=== PATIENT | female | born 1985 | race Caucasian/White ===

== ENCOUNTER 2020-12-26 21:46 | Inpatient (IN) | payer BC, OTHER ==
[2020-12-26] MEDS ORDERED: ONDANSETRON 4 MG/2 ML VIAL IVP STA (22:20)
[2020-12-26] MEDS ORDERED: SODIUM CHLORIDE 0.9% 1,000 ML IV STA (22:20)
[2020-12-26] MEDS ORDERED: KETOROLAC 15 MG/ML 1 ML VIAL IVP STA (22:20)
[2020-12-26 22:45] LABS: Basophils % (A) 0 %; Eosinophils % (A) 0 %; HCT 42.2 % (34.0-46.0); HGB 14.1 gm/dL (11.4-16.0); Lymphocytes # (A) 1.6 k/uL (1.0-4.8); Lymphocytes % (A) 10 %; MCH 29.1 pg (25.0-35.0); MCHC 33.5 g/dL (31.0-37.0); MCV 86.9 fL (80.0-100.0); Mean Platelet Volume 7.3; Monocytes # (A) 0.4 k/uL (0-1.0); Monocytes % (A) 3 %; Neutrophils # (A) 13.4 k/uL (1.3-7.7); Neutrophils % (A) 86 %; Platelet Count 307 k/uL (150-450); RBC 4.86 m/uL (3.80-5.40); RDW 13.3 % (11.5-15.5); WBC 15.5 k/uL (3.8-10.6)
[2020-12-26 22:55] LABS: ALT 15 U/L (4-34); AST 20 U/L (14-36); African American GFR (CKD) >90 (>60 ml/min/1.73 sqM); Albumin 4.4 g/dL (3.5-5.0); Alkaline Phosphatase 73 U/L (38-126); Amylase 59 U/L (30-110); Blood Urea Nitrogen 9 mg/dL (7-17); Calcium 9.7 mg/dL (8.4-10.2); Carbon Dioxide 24 mmol/L (22-30); Glucose 132 mg/dL (74-99); Lipase 46 U/L (23-300); Non-African American GFR(CKD) >90 (>60 ml/min/1.73 sqM); Sodium 137 mmol/L (137-145); Total Bilirubin 0.4 mg/dL (0.2-1.3); Total Protein 7.6 g/dL (6.3-8.2)
--- NOTE | 2020-12-26 22:57 | ED ---
Abdominal Pain HPI - General Chief Complaint: Abdominal Pain Stated Complaint: abd pain, vomiting Time Seen by Provider: 12/26/20 22:01 Source: patient, family Mode of arrival: ambulatory Limitations: no limitations - History of Present Illness Initial Comments: Patient is a 34-year-old female presenting to emergency Department with complaints of right-sided abdominal pain that started about 2 PM today. She states the pain started in her right flank and then has progressed to the right side of her abdomen and towards her right hip. She does have history of kidney stones although she feels like this is more severe pain than previous kidney stones. She does admit to some nausea and vomiting secondary severe pain. She denies any chest pain or shortness of breath, no fevers or chills. States this came on all of a sudden. Before 2 PM today she felt her normal self. She's been eating and drinking as normal. She denies being , denies any dysuria. She has history of cholecystectomy, no other abdominal surgeries. She has no further complaints. Upon arrival to the ER, her vitals are stable. - Related Data Home Medications Medication Instructions Recorded Confirmed Omeprazole 20 mg PO HS 12/26/20 12/26/20 Sertraline [Zoloft] 50 mg PO HS 12/26/20 12/26/20 Allergies Allergy/AdvReac Type Severity Reaction Status Date / Time No Known Allergies Allergy Verified 12/26/20 23:30 Review of Systems ROS Statement: Those systems with pertinent positive or pertinent negative responses have been documented in the HPI. ROS Other: All systems not noted in ROS Statement are negative. Past Medical History Past Medical History: No Reported History History of Any Multi-Drug Resistant Organisms: None Reported Past Surgical History: Cholecystectomy Past Psychological History: Depression Smoking Status: Current every day smoker Past Alcohol Use History: None Reported Past Drug Use History: None Reported General Exam - General Exam Comments Initial Comments: GENERAL: Patient is well-developed and well-nourished. Patient is nontoxic and in moderate distress, actively vomiting. HEAD: Atraumatic, normocephalic. EYES: Pupils equal round and reactive to light, extraocular movements intact, sclera anicteric, conjunctiva are normal. Eyelids were unremarkable. ENT: Nares patent, oropharynx clear without exudates. Moist mucous membranes. NECK: Normal range of motion, supple without lymphadenopathy or JVD. LUNGS: Unlabored respirations. Breath sounds clear to auscultation bilaterally and equal. No wheezes rales or rhonchi. HEART: Regular rate and rhythm without murmurs, rubs or gallops. ABDOMEN: Soft, tender to palpation in the right side of the abdomen, some mild right sided flank pain, normoactive bowel sounds. No guarding, no rebound. No masses appreciated. : Deferred MUSCULOSKELETAL: Normal extremities with adequate strength and normal range of motion, no pitting or edema. No clubbing or cyanosis. NEUROLOGICAL: Patient is alert and oriented x 3. SKIN: Warm, Dry, normal turgor, no rashes or lesions noted. Limitations: no limitations Course Vital Signs 12/26/20 21:55 Temperature 97.9 F Pulse Rate 85 Respiratory 18 Rate Blood Pressure 108/67 O2 Sat by Pulse 98 Oximetry Medical Decision Making - Medical Decision Making Patient is a 34-year-old female here with right-sided flank pain, right-sided abdominal pain since about 2 PM today. This came on all of a sudden. She does have history of stones although this feels more severe in nature. Her vitals are stable upon arrival. Labs show a white count of 15.5, lactic acid is normal. CT abdomen and pelvis shows a dilated appendix at 10 mm with minimal stranding, consistent with an acute appendicitis. Patient received some fluids, Toradol and Zofran and has been resting comfortably. I discussed these findings with her. Patient will be admitted, started on antibiotics. Patient accepted by Dr. Zamarripa. Case discussed with Dr. Courtney. - Lab Data Result diagrams: 12/26/20 22:37 12/26/20 22:37 Lab Results 12/26/20 12/26/20 12/26/20 Range/Units 22:37 22:37 22:37 WBC 15.5 H (3.8-10.6) k/uL RBC 4.86 (3.80-5.40) m/uL Hgb 14.1 (11.4-16.0) gm/dL Hct 42.2 (34.0-46.0) % MCV 86.9 (80.0-100.0) fL MCH 29.1 (25.0-35.0) pg MCHC 33.5 (31.0-37.0) g/dL RDW 13.3 (11.5-15.5) % Plt Count 307 (150-450) k/uL MPV 7.3 Neutrophils % 86 % Lymphocytes % 10 % Monocytes % 3 % Eosinophils % 0 % Basophils % 0 % Neutrophils # 13.4 H (1.3-7.7) k/uL Lymphocytes # 1.6 (1.0-4.8) k/uL Monocytes # 0.4 (0-1.0) k/uL Eosinophils # 0.0 (0-0.7) k/uL Basophils # 0.0 (0-0.2) k/uL Sodium 137 (137-145) mmol/L Potassium 4.2 (3.5-5.1) mmol/L Carbon Dioxide 24 (22-30) mmol/L BUN 9 (7-17) mg/dL Creatinine 0.52 (0.52-1.04) mg/dL Est GFR (CKD-EPI)AfAm >90 (>60 ml/min/1.73 sqM) Est GFR (CKD-EPI)NonAf >90 (>60 ml/min/1.73 sqM) Glucose 132 H (74-99) mg/dL Plasma Lactic Acid Lars 1.9 (0.7-2.0) mmol/L Calcium 9.7 (8.4-10.2) mg/dL Total Bilirubin 0.4 (0.2-1.3) mg/dL AST 20 (14-36) U/L ALT 15 (4-34) U/L Alkaline Phosphatase 73 (38-126) U/L Total Protein 7.6 (6.3-8.2) g/dL Albumin 4.4 (3.5-5.0) g/dL Amylase 59 (30-110) U/L Lipase 46 (23-300) U/L Disposition Clinical Impression: Acute appendicitis Disposition: ADMITTED IP TO THIS [facility] Condition: Stable Referrals: Margarita Toure DO [Primary Care Provider] - 1-2 days Decision Date: 12/27/20 Decision Time: 00:02
[2020-12-26 23:18] LABS: Potassium 4.2 mmol/L (3.5-5.1)
--- NOTE | 2020-12-26 23:21 | CT ---
EXAMINATION TYPE: CT abdomen pelvis w con DATE OF EXAM: 12/26/2020 COMPARISON: 03/17/2017 HISTORY: Right side abdominal pain CT DLP: mGycm Automated exposure control for dose reduction was used. CONTRAST: The contrast was Isovue 100 mL. FINDINGS:BMB Lung bases are clear. There is no pleural effusion. Heart appears normal. There is no pericardial eff usion. Liver spleen stomach pancreas appear intact. Bile ducts are not dilated. There are clips from cholecystectomy. There is no adrenal mass. Kidneys show satisfactory contrast opacification. There is no hydronephrosi s. Ureters are not dilated. Bladder distends smoothly. Uterus is anteverted. There is no evidence of a pelvic mass. There is no free fluid in the pelvis. There is no mesenteric edema. There is no ascites or free air. There is no bowel obstruction. Appendi x measures 10 mm with minimal stranding. Lumbar vertebra have normal alignment. Posterior elements are intact. There is no compression fractur e. Bony pelvis is intact. IMPRESSION: Thickened fluid-filled appendix is a change compared to old exam and consistent with acute appendicit is.
[2020-12-26] MEDS ORDERED: MORPHINE SULFATE 4 MG/ML SYRINGE IV PRN (23:58)
[2020-12-26] MEDS ORDERED: NALOXONE 0.4 MG/ML 1 ML VIAL IV PRN (23:58)
[2020-12-27] MEDS ORDERED: PIPERACILLIN-TAZOBACTAM 3.375 GM in SODIUM CHLORIDE 0.9% 100 ML IVPB ONE ×2
[2020-12-27 00:03] LABS: Anion Gap 10 mmol/L; Chloride 103 mmol/L (98-107)
[2020-12-27 00:41] LABS: Appearance,Urine Clear (Clear); Bilirubin,Urine Negative (Negative); Blood,Urine Negative (Negative); Color,Urine Yellow; Glucose,Urine (UA) Negative (Negative); Ketones,Urine Negative (Negative); Leukocyte Esterase,Urine Negative (Negative); Nitrite,Urine Negative (Negative); PH, Urine 7.5 (5.0-8.0); Protein,Urine Trace (Negative); Urobilinogen,Urine <2.0 mg/dL (<2.0)
[2020-12-27] MEDS: SODIUM CHLORIDE 0.9% 1,000 ML IV SCH ×2 (00:59→17:11)
[2020-12-27 01:23] LABS: Specific Gravity,Urine >1.050 (1.001-1.035)
[2020-12-27] MEDS: PIPERACILLIN-TAZOBACTAM 3.375 GM in SODIUM CHLORIDE 0.9% 100 ML IVPB SCH ×2 (10:16→17:11)
[2020-12-27] MEDS: KETOROLAC 15 MG/ML 1 ML VIAL IVP PRN ×2 (10:17→23:32)
[2020-12-27] MEDS: ONDANSETRON 4 MG/2 ML VIAL IVP PRN ×2 (11:00→21:00)
--- NOTE | 2020-12-27 11:06 | P.GSHP ---
<Milena Velasquez - Last Filed: 12/27/20 10:56> History of Present Illness H&P Date: 12/27/20 CHIEF COMPLAINT: Abdominal pain HISTORY OF PRESENT ILLNESS: This is a 34-year-old female with prior history of kidney stones, nicotine dependence, depression and prior cholecystectomy. Patient presents to the hospital with complaints of right sided abdominal pain that started around 2:00 yesterday. The pain was located in the right flank and did radiate to the right lower quadrant of the abdomen. Patient had nausea and vomiting. She reports that this pain did not feel like her previous kidney stones. She had no urinary symptoms. She denied any frequency urgency or hesitancy with urinating. She denied any hematuria. She denies any fever or sweats. She does admit to having chills. Patient has computed tomography scan of the abdomen and pelvis showed thickened fluid-filled appendix is changed compared to old exam and consistent with acute appendicitis. She did have evidence of leukocytosis on admission. PAST MEDICAL HISTORY: See list. PAST SURGICAL HISTORY: See list. MEDICATIONS: See list. ALLERGIES: See list. SOCIAL HISTORY: No illicit drug use. REVIEW OF SYSTEMS: CONSTITUTIONAL: Denies fever or chills. HEENT: Denies blurred vision, vision changes, or eye pain. Denies hemoptysis ENDOCRINE: Denies heat or cold intolerance. CARDIOVASCULAR: Denies chest pain or pressure. RESPIRATORY: No shortness of breath. GASTROINTESTINAL: Denies abdominal pain. Denies nausea or vomiting. NEURO: Denies history of seizures. PSYCH: No depression or suicidal ideation HEMATOLOGIC: Denies bleeding disorders. LYMPHATIC: The patient denies any lumps and bumps around the neck. GENITOURINARY: Denies any blood in urine or increased urinary frequency. MUSCULOSKELETAL: Denies myalgias. Denies joint swelling. Denies decreased range of motion beyond patients baseline. SKIN: Denies pruitis. Denies rash. PHYSICAL EXAM: VITAL SIGNS: Reviewed GENERAL: Well-developed in no acute distress. HEENT: No sclera icterus. Extraocular movements grossly intact. Moist buccal mucosa. Head is atraumatic, normocephalic. Hears conversational speech. No nasal drainage. NECK: Supple without lymphadenopathy. CHEST: Non-labored respirations and equal bilateral excursions. CARDIOVASCULAR: Palpable 2+ radial pulses. ABDOMEN: Soft. Nondistended. Tenderness with palpation in the right lower quadrant MUSCULOSKELETAL: No clubbing or cyanosis. NEUROLOGIC: No focal or lateralizing signs. Cranial nerves II through XII grossly intact. PSYCH: Appropriate affect. Alert and oriented to person, place and time. SKIN: Well perfused. Good skin turgor. LABORATORY DATA: WBC is 15.5 hemoglobin 14.1 platelets 37 Sodium 137 potassium 4.2 creatinine 0.52 glucose 132 lactic acid 1.9 LFTs normal lipase 46 Urinalysis negative for infection or blood IMAGING: Computed tomography scan shows thickened fluid-filled appendix is changed compared to old exam and consistent with acute appendicitis. ASSESSMENT: 1. Acute appendicitis PLAN: -Patient scheduled for robotic appendectomy today, 12/27/[address] 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 Signing provider agrees with the documented findings, assessment, and plan of care. Past Medical History Past Medical History: No Reported History History of Any Multi-Drug Resistant Organisms: None Reported Past Surgical History: Cholecystectomy Past Anesthesia/Blood Transfusion Reactions: No Reported Reaction Past Psychological History: Depression Smoking Status: Current every day smoker Past Alcohol Use History: None Reported Past Drug Use History: None Reported Medications and Allergies Home Medications Medication Instructions Recorded Confirmed Type Omeprazole 20 mg PO HS 12/26/20 12/26/20 History Sertraline [Zoloft] 50 mg PO HS 12/26/20 12/26/20 History Acetaminophen Tab [Tylenol Tab] 1,000 mg PO Q6HR PRN #30 tablet 12/27/20 Rx Ibuprofen [Motrin] 600 mg PO Q8HR PRN #30 tab 12/27/20 Rx Simethicone [Gas-X] 125 mg PO AC-TID PRN #20 cap 12/27/20 Rx Allergies Allergy/AdvReac Type Severity Reaction Status Date / Time No Known Allergies Allergy Verified 12/26/20 23:30 Surgical - Exam Vital Signs Temp Pulse Resp BP Pulse Ox 97.9 F 85 18 108/67 98 12/26/20 21:55 12/26/20 21:55 12/26/20 21:55 12/26/20 21:55 12/26/20 21:55 Results - Labs 12/26/20 22:37 12/26/20 22:37 Abnormal Lab Results - Last 24 Hours (Table) 12/26/20 12/26/20 12/27/20 Range/Units 22:37 22:37 00:25 WBC 15.5 H (3.8-10.6) k/uL Neutrophils # 13.4 H (1.3-7.7) k/uL Glucose 132 H (74-99) mg/dL Ur Specific [place] >1.050 H (1.001-1.035) Urine Protein Trace H (Negative) Diabetes panel 12/26/20 Range/Units 22:37 Sodium 137 (137-145) mmol/L Potassium 4.2 (3.5-5.1) mmol/L Chloride 103 (98-107) mmol/L Carbon Dioxide 24 (22-30) mmol/L BUN 9 (7-17) mg/dL Creatinine 0.52 (0.52-1.04) mg/dL Glucose 132 H (74-99) mg/dL Calcium 9.7 (8.4-10.2) mg/dL AST 20 (14-36) U/L ALT 15 (4-34) U/L Alkaline Phosphatase 73 (38-126) U/L Total Protein 7.6 (6.3-8.2) g/dL Albumin 4.4 (3.5-5.0) g/dL Calcium panel 12/26/20 Range/Units 22:37 Calcium 9.7 (8.4-10.2) mg/dL Albumin 4.4 (3.5-5.0) g/dL Pituitary panel 12/26/20 Range/Units 22:37 Sodium 137 (137-145) mmol/L Potassium 4.2 (3.5-5.1) mmol/L Chloride 103 (98-107) mmol/L Carbon Dioxide 24 (22-30) mmol/L BUN 9 (7-17) mg/dL Creatinine 0.52 (0.52-1.04) mg/dL Glucose 132 H (74-99) mg/dL Calcium 9.7 (8.4-10.2) mg/dL Adrenal panel 12/26/20 Range/Units 22:37 Sodium 137 (137-145) mmol/L Potassium 4.2 (3.5-5.1) mmol/L Chloride 103 (98-107) mmol/L Carbon Dioxide 24 (22-30) mmol/L BUN 9 (7-17) mg/dL Creatinine 0.52 (0.52-1.04) mg/dL Glucose 132 H (74-99) mg/dL Calcium 9.7 (8.4-10.2) mg/dL Total Bilirubin 0.4 (0.2-1.3) mg/dL AST 20 (14-36) U/L ALT 15 (4-34) U/L Alkaline Phosphatase 73 (38-126) U/L Total Protein 7.6 (6.3-8.2) g/dL Albumin 4.4 (3.5-5.0) g/dL <Shelley Rey N - Last Filed: 12/27/20 17:22> History of Present Illness As above. Please see additional documentation below. CHIEF COMPLAINT: Right lower quadrant abdominal pain with appendicitis for over 1 day. HISTORY OF PRESENT ILLNESS: The patient is a previously healthy 34 -year-old female who presents with over 1 day history of right lower quadrant abdominal pain. Surgical history significant for prior cholecystectomy. Patient reports pain became moderate to severe prompting her to commonto the emergency room. Clinical findings were consistent with appendicitis. PAST MEDICAL HISTORY: See list and reviewed PAST SURGICAL HISTORY: See list and reviewed CURRENT MEDICATIONS: Home Medications Medication Instructions Recorded Confirmed Omeprazole 20 mg PO HS 12/26/20 12/26/20 Sertraline [Zoloft] 50 mg PO HS 12/26/20 12/26/20 Previous Rx's Medication Instructions Recorded Acetaminophen Tab [Tylenol Tab] 1,000 mg PO Q6HR PRN #30 tablet 12/27/20 Ibuprofen [Motrin] 600 mg PO Q8HR PRN #30 tab 12/27/20 Simethicone [Gas-X] 125 mg PO AC-TID PRN #20 cap 12/27/20 ALLERGIES: See list and reviewed SOCIAL HISTORY: See list and reviewed FAMILY HISTORY: See list and reviewed REVIEW OF ORGAN SYSTEMS: CONSTITUTIONAL: Present fever, no chills. Denies recent weight loss. HEENT: Denies any trouble with vision, hearing or nosebleeds. No difficulty swallowing. LYMPHATIC: The patient denies any lumps and bumps around the neck. ENDOCRINE: Denies any thyroid disorders. Denies any blood sugar glucose intolerance. RESPIRATORY: Denies shortness of breath including chronic cough. CARDIOVASCULAR: Denies history of chest pain with exertion. GASTROINTESTINAL: No blood in stools. Has gastroesophageal reflux disease. GENITOURINARY: History of kidney stones. MUSCULOSKELETAL: Denies current joint arthritis. NEUROLOGIC: Denies any numbness or tingling along the distal extremities. No seizure disorders or headaches. PSYCHIATRIC: Has depressive disorder. HEMATOLOGIC: Denies any abnormal bleeding or bruising. PHYSICAL EXAMINATION: GENERAL: A 10-year-old female in no acute distress. Pleasant. HEENT: No sclera icterus. Extraocular movements grossly intact. Moist buccal mucosa. Head is atraumatic, normocephalic. Hears conversational speech. No nasal drainage. NECK: No gross lymphadenopathy. No JV distention. CHEST: Non-labored respirations and equal bilateral excursions. CARDIOVASCULAR: Regular rate and rhythm. ABDOMEN: Right lower quadrant abdominal pain. MUSCULOSKELETAL: No clubbing, cyanosis or edema. NEUROLOGIC: No focal or lateralizing signs. PSYCH: Appropriate affect. Alert and oriented to person, place and time. SKIN: Well perfused. Good skin turgor. LABS: Reviewed. White blood cell count elevated over 15,000. STUDIES: CT of the abdomen and pelvis independently reviewed with appendix dilated with inflammatory changes. No free air or signs of bowel obstruction. This is my independent interpretation. ASSESSMENT: 1. Appendicitis with sepsis 2. Leukocytosis. PLAN: 1. I have discussed benefits and risks of robotic appendectomy. 2. Bilateral SCDs. 3. Antibiotics intravenous to address leukocytosis Thank you very much for allowing me to participate in the care of your patient. Surgical - Exam Vital Signs Temp Pulse Resp BP Pulse Ox 97.9 F 85 18 108/67 98 12/26/20 21:55 12/26/20 21:55 12/26/20 21:55 12/26/20 21:55 12/26/20 21:55 Results - Labs 12/26/20 22:37 12/26/20 22:37 Abnormal Lab Results - Last 24 Hours (Table) 12/26/20 12/26/20 12/27/20 Range/Units 22:37 22:37 00:25 WBC 15.5 H (3.8-10.6) k/uL Neutrophils # 13.4 H (1.3-7.7) k/uL Glucose 132 H (74-99) mg/dL Ur Specific [place] >1.050 H (1.001-1.035) Urine Protein Trace H (Negative) Diabetes panel 12/26/20 Range/Units 22:37 Sodium 137 (137-145) mmol/L Potassium 4.2 (3.5-5.1) mmol/L Chloride 103 (98-107) mmol/L Carbon Dioxide 24 (22-30) mmol/L BUN 9 (7-17) mg/dL Creatinine 0.52 (0.52-1.04) mg/dL Glucose 132 H (74-99) mg/dL Calcium 9.7 (8.4-10.2) mg/dL AST 20 (14-36) U/L ALT 15 (4-34) U/L Alkaline Phosphatase 73 (38-126) U/L Total Protein 7.6 (6.3-8.2) g/dL Albumin 4.4 (3.5-5.0) g/dL Calcium panel 12/26/20 Range/Units 22:37 Calcium 9.7 (8.4-10.2) mg/dL Albumin 4.4 (3.5-5.0) g/dL Pituitary panel 12/26/20 Range/Units 22:37 Sodium 137 (137-145) mmol/L Potassium 4.2 (3.5-5.1) mmol/L Chloride 103 (98-107) mmol/L Carbon Dioxide 24 (22-30) mmol/L BUN 9 (7-17) mg/dL Creatinine 0.52 (0.52-1.04) mg/dL Glucose 132 H (74-99) mg/dL Calcium 9.7 (8.4-10.2) mg/dL Adrenal panel 12/26/20 Range/Units 22:37 Sodium 137 (137-145) mmol/L Potassium 4.2 (3.5-5.1) mmol/L Chloride 103 (98-107) mmol/L Carbon Dioxide 24 (22-30) mmol/L BUN 9 (7-17) mg/dL Creatinine 0.52 (0.52-1.04) mg/dL Glucose 132 H (74-99) mg/dL Calcium 9.7 (8.4-10.2) mg/dL Total Bilirubin 0.4 (0.2-1.3) mg/dL AST 20 (14-36) U/L ALT 15 (4-34) U/L Alkaline Phosphatase 73 (38-126) U/L Total Protein 7.6 (6.3-8.2) g/dL Albumin 4.4 (3.5-5.0) g/dL Assessment and Plan (1) Depressive disorder Current Visit: Yes Status: Acute Code(s): F32.9 - MAJOR DEPRESSIVE DISORDER, SINGLE EPISODE, UNSPECIFIED SNOMED Code(s): 80993234 (2) Morbid obesity due to excess calories Current Visit: Yes Status: Acute Code(s): E66.01 - MORBID (SEVERE) OBESITY DUE TO EXCESS CALORIES SNOMED Code(s): 882905548 (3) BMI 35.0-35.9,adult Current Visit: Yes Status: Acute Code(s): Z68.35 - BODY MASS INDEX [BMI] 35.0-35.9, ADULT SNOMED Code(s): 553597249 (4) Gastroesophageal reflux disease Current Visit: Yes Status: Acute Code(s): K21.9 - GASTRO-ESOPHAGEAL REFLUX DISEASE WITHOUT ESOPHAGITIS SNOMED Code(s): 748324914 (5) Leukocytosis Current Visit: Yes Status: Acute Code(s): D72.829 - ELEVATED WHITE BLOOD CELL COUNT, UNSPECIFIED SNOMED Code(s): 259332013 (6) History of kidney stones Current Visit: Yes Status: Acute Code(s): Z87.442 - PERSONAL HISTORY OF URINARY CALCULI SNOMED Code(s): 441857574 (7) Acute appendicitis Current Visit: Yes Status: Acute Code(s): K35.80 - UNSPECIFIED ACUTE APPENDICITIS SNOMED Code(s): 17438240
[2020-12-27] MEDS ORDERED: ONDANSETRON 4 MG/2 ML VIAL IVP ONE (18:45)
[2020-12-27] MEDS ORDERED: SCOPOLAMINE 1.5MG/72HR PATCH TRANSDERM ONE (18:45)
[2020-12-27] MEDS ORDERED: DEXAMETHASONE SOD PHOSPHATE 10 MG/ML 1 ML VIAL IV ONE (18:46)
[2020-12-27] MEDS ORDERED: SODIUM CHLORIDE 0.9% 1,000 ML IV ONE ×3 (18:50→20:45)
[2020-12-27] MEDS ORDERED: LIDOCAINE 2%-EPI 1:100,000 20 ML VIAL SQ ONE (19:14)
[2020-12-27] MEDS ORDERED: ACETAMINOPHEN IV (For NPO) 1,000 MG in EMPTY BAG 1 BAG IVPB SCH (20:00)
--- NOTE | 2020-12-27 20:00 | P.OP ---
Date of Procedure: 12/27/20 Description of Procedure: SURGEON: TRENA REY MD Preoperative Diagnosis: 1. Acute appendicitis 2. Morbid obesity due to excess calories, BMI 35.2 3. Gastroesophageal reflux disease 4. Depressive disorder Postoperative Diagnosis: 1. Acute appendicitis, retrocecal with periappendicitis 2. Morbid obesity due to excess calories, BMI 35.2 3. Gastroesophageal reflux disease 4. Depressive disorder Procedure(s) Performed: 1. Robotic-assisted daVinci Xi laparoscopic appendectomy Anesthesia: GETA, local Estimated Blood Loss (ml): 5 Pathology: other (appendix) Condition: stable Disposition: floor Operative Findings: 1. Acute appendicitis without rupture with periappendicitis, retrocecal 2. Terminal ileum unremarkable 3. Cecum unremarkable 4. No inguinal hernias INDICATIONS: The patient is a 34-year-old male who presents with acute appendicitis. Benefits and risks, including infection, open surgery, and bleeding for additional surgery was discussed at length. Informed consent was obtained. All questions of the patient and family were answered. DESCRIPTION: The patient was transferred to the operating room and placed in supine position. The patient had previously voided. The abdomen was then prepped and draped in standard sterile fashion as Ioban was placed along the abdomen to minimize any contamination of skin floor. After a timeout protocol was performed, attention was then brought to the left upper quadrant whereby a 0 degree 5 mm laparoscopic trocar entry was performed. The abdominal cavity was entered and insufflated to 12 mmHg pressure, which was tolerated well. Diagnostic laparoscopy demonstrated no injury to bowel, viscera or mesentery. Next a robotic 8-mm trocar was placed along the left lower quadrant, 10-cm lateral to the midline. A 12 mm port was placed along the left upper quadrant and another 8-mm port left lateral abdominal wall. Ports were placed 8 cm apart from each other including 15-20 cm away from the target anatomy of the right pelvis. The patient was then placed in Trendelenburg position, at least 7 down and right side up at least 7. The robotic da Krupa XI system was primed and docked from the left side of the patient. Using atraumatic graspers and vessel sealer, the robotic system was docked and primed as described. Instruments were interchanged by the assistant professor of radiology including graspers, robotic stapler and vessel sealer. Next, attention was brought to identify the cecum. A systematic view within the abdominal cavity was started with the small bowel which was unremarkable. The base of the cecum was unremarkable. The right and left groin was unremarkable. The appendix was retrocecal coursing towards right upper quadrant behind the ascending colon with additional dissection required. The body of the appendix was dilated with moderate periappendicitis. No perforation was identified. The appendix was dissected free from its surrounding tissues. Blue 30 mm robotic staple loads were fired along the base of the appendix. The staple line was hemostatic. Hemostasis was checked prior to undocking the robot. The robot was undocked. I re-scrubbed into the case. The specimen was removed from the abdominal cavity with an Endo Catch bag through the 12 mm trocar at the left upper quadrant. The port site was closed with 0 Vicryl and Neil Dejesus. All instruments and pneumoperitoneum were evacuated from the abdominal cavity. Local anesthetic was infiltrated to all wounds for postop analgesia. All incisions were also cleansed with diluted hydrogen peroxide. The incisions were closed with 4-0 Monocryl. Exofin glue was applied to the rest of the skin incisions. The patient had tolerated the procedure well. The patient was extubated successfully. The patient was transferred to the postanesthesia care unit in stable condition. Plan - Discharge Summary Discharge Rx Participant: Yes New Discharge Prescriptions: New Simethicone [Gas-X] 125 mg PO AC-TID PRN #20 cap PRN Reason: Pain Ibuprofen [Motrin] 600 mg PO Q8HR PRN #30 tab PRN Reason: Pain Acetaminophen Tab [Tylenol Tab] 1,000 mg PO Q6HR PRN #30 tablet PRN Reason: Pain Continue Sertraline [Zoloft] 50 mg PO HS Omeprazole 20 mg PO HS Discharge Medication List Omeprazole 20 mg PO HS 12/26/20 [History] Sertraline [Zoloft] 50 mg PO HS 12/26/20 [History] Acetaminophen Tab [Tylenol Tab] 1,000 mg PO Q6HR PRN #30 tablet 12/27/20 [Rx] Ibuprofen [Motrin] 600 mg PO Q8HR PRN #30 tab 12/27/20 [Rx] Simethicone [Gas-X] 125 mg PO AC-TID PRN #20 cap 12/27/20 [Rx] Follow up Appointment(s)/Referral(s): Margarita Toure DO [Primary Care Provider] - 1-2 days Trena Rey MD [STAFF PHYSICIAN] - 01/03/21 Patient Instructions/Handouts: *Surgery [facility] - Managing Your Pain After Surgery Without Opioids, Laparoscopic Appendectomy (DC) Activity/Diet/Wound Care/Special Instructions: No lifting over 10 pounds in 2 weeks until Nov 12. August shower. No bath tub soaks for two weeks until Nov 12. Diet as tolerated. Use Tylenol, simethicone and ibuprofen or Aleve scheduled for the next 24-48 h ours for best pain relief. Use ice along incisions for today to prevent swelling. Discharge Disposition: HOME SELF-CARE
[2020-12-27] MEDS ORDERED: SODIUM CHLORIDE 0.9% 1,000 ML IV SCH (20:15)
[2020-12-27] MEDS ORDERED: SERTRALINE 50 MG TAB PO SCH (21:00)
[2020-12-27] MEDS ORDERED: PANTOPRAZOLE 40 MG TABLET PO SCH (21:00)
[2020-12-27 23:51] VITALS: TEMP 97.7
[2020-12-27 23:58] VITALS: BP 96/64; PULSE 85; RESP 18
[2020-12-28] MEDS ORDERED: ENOXAPARIN 30 MG/0.3 ML SYRINGE SQ SCH (09:00)
--- NOTE | 2020-12-28 12:17 | P.DS ---
Providers Date of admission: 12/26/20 23:58 Expected date of discharge: 12/27/20 Attending physician: Shelley Rey Primary care physician: Margarita Toure - Discharge Diagnosis(es) (1) Acute appendicitis Status: Acute (2) Depressive disorder Status: Acute (3) Morbid obesity due to excess calories Status: Acute (4) BMI 35.0-35.9,adult Status: Acute (5) Gastroesophageal reflux disease Status: Acute (6) Leukocytosis Status: Acute (7) History of kidney stones Status: Acute Hospital Course: Postoperative Diagnosis: 1. Acute appendicitis, retrocecal with periappendicitis 2. Morbid obesity due to excess calories, BMI 35.2 3. Gastroesophageal reflux disease 4. Depressive disorder COURSE: The patient is a 34-year-old male who presented with acute appendicitis. . Prior to discharge, she was tolerating diet. Her pain was controlled. Discharge instructions were reviewed. Patient was stable for discharge. Procedures: Procedure(s) Performed: 1. Robotic-assisted daVinci Xi laparoscopic appendectomy Anesthesia: GETA, local Estimated Blood Loss (ml): 5 Pathology: other (appendix) Condition: stable Disposition: floor Operative Findings: 1. Acute appendicitis without rupture with periappendicitis, retrocecal 2. Terminal ileum unremarkable 3. Cecum unremarkable 4. No inguinal hernias Patient Condition at Discharge: Stable Plan - Discharge Summary Discharge Rx Participant: Yes New Discharge Prescriptions: New Simethicone [Gas-X] 125 mg PO AC-TID PRN #20 cap PRN Reason: Pain Ibuprofen [Motrin] 600 mg PO Q8HR PRN #30 tab PRN Reason: Pain Acetaminophen Tab [Tylenol Tab] 1,000 mg PO Q6HR PRN #30 tablet PRN Reason: Pain Continue Sertraline [Zoloft] 50 mg PO HS Omeprazole 20 mg PO HS Discharge Medication List Omeprazole 20 mg PO HS 12/26/20 [History] Sertraline [Zoloft] 50 mg PO HS 12/26/20 [History] Acetaminophen Tab [Tylenol Tab] 1,000 mg PO Q6HR PRN #30 tablet 12/27/20 [Rx] Ibuprofen [Motrin] 600 mg PO Q8HR PRN #30 tab 12/27/20 [Rx] Simethicone [Gas-X] 125 mg PO AC-TID PRN #20 cap 12/27/20 [Rx] Follow up Appointment(s)/Referral(s): Margarita Toure DO [Primary Care Provider] - 1-2 days Shelley Rey MD [STAFF PHYSICIAN] - 01/03/21 Patient Instructions/Handouts: *Surgery [facility] - Managing Your Pain After Surgery Without Opioids, Laparoscopic Appendectomy (DC) Activity/Diet/Wound Care/Special Instructions: No lifting over 10 pounds in 2 weeks until Nov 12. August shower. No bath tub soaks for two weeks until Nov 12. Diet as tolerated. Use Tylenol, simethicone and ibuprofen or Aleve scheduled for the next 24-48 hours for best pain relief. Use ice along incisions for today to prevent swelling. Discharge Disposition: HOME SELF-CARE
[2020-12-30] MEDS ORDERED: SCOPOLAMINE 1.5MG/72HR PATCH TRANSDERM SCH (18:00)
== END 2020-12-27 23:55 | disposition home or self-care (01) | DRG 343 ==
LOC: EC 21:46 → 6PED 23:58
PROVIDERS: ADMIT Surgery Plastic and Reconstructive Surgery; ATTEND Surgery Plastic and Reconstructive Surgery
PROC: 8E0W4CZ Robotic Assisted Procedure of Trunk Region, Percutaneous Endoscopic Approach (ICD-10-PCS; 2020-12-27)
PROC: 0DTJ4ZZ Resection of Appendix, Percutaneous Endoscopic Approach (ICD-10-PCS; principal; 2020-12-27 18:50)
DX: K35.80 Unspecified acute appendicitis (principal); E66.01 Morbid (severe) obesity due to excess calories; F17.200 Nicotine dependence, unspecified, uncomplicated; F32.9 Major depressive disorder, single episode, unspecified; K21.00 Gastro-esophageal reflux disease with esophagitis, without bleeding; Z68.35 Body mass index [BMI] 35.0-35.9, adult; Z87.442 Personal history of urinary calculi
CPT/HCPCS: 36415; 74177; 80053; 81003; 81025; 82150; 83605; 83690; 85025; 87040; 87635